=== PATIENT | male | born 1995 | race Caucasian/White ===

== ENCOUNTER 2023-12-15 09:58 | Day surgery (SDC) | payer OTHER ==
[~2023-12-15] VITALS: Ht 177.8 cm; Wt 87.1 kg
[2023-12-15] MEDS ORDERED: PROPOFOL 200 MG/20 ML VIAL IV ONE (12:00)
[2023-12-15] MEDS ORDERED: SEVOFLURANE 250 ML BTL INH ONE (12:00)
[2023-12-15] MEDS ORDERED: fentaNYL citrate 0.05 MG/ML VIAL ONE (12:02)
[2023-12-15] MEDS ORDERED: LIDOCAINE/EPI 1% 1:100000 20 ML VIAL INJ ONE (12:08)
[2023-12-15] MEDS ORDERED: ONDANSETRON 4 MG/2 ML VIAL IVP PRN (12:30)
[2023-12-15] MEDS ORDERED: HYDROmorphone 1 MG/ML AMP IVP PRN (12:30)
[2023-12-15] MEDS ORDERED: LACTATED RINGERS 1,000 ML IV SCH (12:30)
[2023-12-15] MEDS: LIDOCAINE/EPI 1% 1:100000 20 ML VIAL INJ ONE (12:46)
[2023-12-15] MEDS: ACETAMINOPHEN EXTRA STRENGTH 500 MG TAB PO PRN (14:21)
== END 2023-12-15 15:18 | disposition home or self-care (01) ==
LOC: MMU 09:58 → MDS 09:58
PROVIDERS: ATTEND Surgery
DX: K60.2 Anal fissure, unspecified (principal); K64.0 First degree hemorrhoids; Z83.719 Family history of colon polyps, unspecified; Z79.899 Other long term (current) drug therapy
CPT/HCPCS: 46080; 71045; J2001; J2704; J3010